=== PATIENT | female | born 1935 | race African-American/Black ===

== ENCOUNTER 2021-02-05 17:13 | Inpatient (IN) | payer MEDICARE, MEDICAID ==
[~2021-02-05] VITALS: Ht 160 cm; Wt 73.9 kg
[~2021-02-05 17:13] MED LIST: AMLO-354 PO; ATOR40TA70 PO; CLOP75TA33 PO; DESL5TAB PO; DIGO125T80 PO; DOCU-150 PO; FERR-63 PO; INSU3INS8 SQ; METF-414 PO; POTA10CA42 PO
[2021-02-05 19:55] LABS: BASOPHILS % 0.2 % (0.0-2.0); EOSINOPHILS % 1.3 % (0.0-5.0); HEMATOCRIT. 33.2 % (36.0-48.0); HEMOGLOBIN. 11.3 g/dL (12.0-16.0); LYMPHOCYTES % 15.5 % (20.0-50.0); MEAN CORPUSCULAR HEMOGLOBIN 28.3 pg (28.0-32.0); MEAN CORPUSCULAR VOLUME 83.6 fL (81.0-99.0); MEAN PLATELET VOLUME 9.1 fl (7.4-10.4); MONOCYTES % 7.5 % (2.0-8.0); NEUTROPHILS % 75.5 % (40.0-76.0); PLATELET 309 x1000/uL (130-400); RED BLOOD CELL COUNT 3.98 mill/uL (4.2-5.4); RED CELL DISTRIBUTION WIDTH 15.1 % (11.6-14.6)
[2021-02-05] MEDS ORDERED: CLONIDINE 0.1MG TABLET PO ONE (20:00)
[2021-02-05] MEDS ORDERED: DEXTROSE 50% WATER 50ML SYRINGE IV PRN ×2 (21:30)
[2021-02-05] MEDS ORDERED: LORAZEPAM 2MG/ML CPJ IV PRN (21:30)
[2021-02-05] MEDS ORDERED: ONDANSETRON HCL 4MG/2ML INJ IV PRN (21:30)
[2021-02-05] MEDS ORDERED: SODIUM CHL 0.45% + KCL 20MEQ/L 1,000 ML IV SCH (22:00)
[2021-02-06] VITALS (8 sets, daily range): BP systolic 118–169; BP diastolic 50–70
[2021-02-06] MEDS: LOSARTAN POTASSIUM 50 MG TABLET PO SCH ×3 (00:14→21:09)
[2021-02-06] MEDS: DEXAMETHASONE 4MG/ML 1ML VIAL IV SCH ×5 (00:14→23:05)
[2021-02-06] MEDS: ZOLPIDEM TARTRATE 5MG TABLET PO PRN ×2 (02:24→21:08)
[2021-02-06] MEDS: ACETAMINOPHEN 325MG TABLET PO PRN (02:24)
[2021-02-06] MEDS: BLOOD SUGAR DIAGNOSTIC STRIP TEST SCH ×4 (06:17→21:13)
[2021-02-06 07:06] LABS: HEMATOCRIT. 32.9 % (36.0-48.0); MEAN CORPUSCULAR HEMOGLOBIN 27.7 pg (28.0-32.0); MEAN CORPUSCULAR VOLUME 83.1 fL (81.0-99.0); MEAN PLATELET VOLUME 9.4 fl (7.4-10.4); PLATELET 304 x1000/uL (130-400); RED BLOOD CELL COUNT 3.96 mill/uL (4.2-5.4); RED CELL DISTRIBUTION WIDTH 15.4 % (11.6-14.6)
[2021-02-06] MEDS ORDERED: OMEPRAZOLE 20MG CAPSULE EXTENDED RELEASE PO SCH (07:10)
[2021-02-06 07:47] LABS: CHLORIDE 107 mEq/L (98-107)
[2021-02-06] MEDS ORDERED: CLOPIDOGREL 75MG TABLET PO SCH (09:00)
[2021-02-06] MEDS: LEVETIRACETAM 500MG TABLET PO SCH ×2 (09:00→21:08)
[2021-02-06] MEDS: DOCUSATE SODIUM 100MG CAPSULE PO SCH ×2 (09:00→17:35)
[2021-02-06] MEDS: AMLODIPINE 5MG TABLET PO SCH ×2 (09:00→21:08)
[2021-02-06] MEDS: INSULIN LISPRO 100 UNITS/ML SUBCUT SCH ×4 (09:01→21:16)
[2021-02-06] MEDS ORDERED: EZ-HD SUSPENSION(BARIUM SULFATE 340GM) PO ONE (09:34)
[2021-02-06] MEDS ORDERED: INSULIN GLARGINE UD 100 UNITS/ML SYR SUBCUT SCH (10:00)
[2021-02-06 12:57] LABS: PLATELET ESTIMATE NORMAL
[2021-02-06] MEDS: SODIUM CHL 0.45% + KCL 20MEQ/L 1,000 ML IV SCH (13:37)
[2021-02-06] MEDS ORDERED: GADOTERATE MEGLUMINE 5 MMOL/10 ML VIAL IV ONE (14:38)
[2021-02-06] MEDS: DIGOXIN 125MCG TABLET PO SCH (17:35)
[2021-02-06] MEDS: PANTOPRAZOLE SODIUM 40 MG/VIAL IV SCH (21:07)
[2021-02-06] MEDS: ATORVASTATIN CALCIUM 20MG TABLET PO SCH (21:07)
[2021-02-07] VITALS (43 sets, daily range): BP systolic 77–164; BP diastolic 40–82
[2021-02-07] MEDS: DEXAMETHASONE 4MG/ML 1ML VIAL IV SCH ×3 (06:00→17:27)
[2021-02-07] MEDS: BLOOD SUGAR DIAGNOSTIC STRIP TEST SCH ×3 (06:04→17:20)
[2021-02-07] MEDS: INSULIN LISPRO 100 UNITS/ML SUBCUT SCH ×3 (06:04→17:28)
[2021-02-07 06:21] LABS: BASOPHILS % 0.1 % (0.0-2.0); HEMATOCRIT. 35.8 % (36.0-48.0); HEMOGLOBIN. 11.4 g/dL (12.0-16.0); LYMPHOCYTES % 8.7 % (20.0-50.0); MEAN CORPUSCULAR HEMOGLOBIN 26.8 pg (28.0-32.0); MEAN CORPUSCULAR VOLUME 83.7 fL (81.0-99.0); MEAN PLATELET VOLUME 9.3 fl (7.4-10.4); MONOCYTES % 3.2 % (2.0-8.0); PLATELET 318 x1000/uL (130-400); RED BLOOD CELL COUNT 4.28 mill/uL (4.2-5.4)
[2021-02-07 06:23] LABS: PROTHROMBIN TIME 10.8 sec (9.6-11.0)
[2021-02-07 06:44] LABS: CHLORIDE 111 mEq/L (98-107)
[2021-02-07] MEDS: SODIUM CHL 0.45% + KCL 20MEQ/L 1,000 ML IV SCH ×2 (08:53→15:51)
[2021-02-07] MEDS: PANTOPRAZOLE SODIUM 40 MG/VIAL IV SCH ×2 (08:54→21:13)
[2021-02-07] MEDS: DOCUSATE SODIUM 100MG CAPSULE PO SCH ×2 (08:54→17:27)
[2021-02-07] MEDS: AMLODIPINE 5MG TABLET PO SCH ×2 (08:54→21:13)
[2021-02-07] MEDS: LEVETIRACETAM 500MG TABLET PO SCH ×2 (08:54→21:13)
[2021-02-07] MEDS: LOSARTAN POTASSIUM 50 MG TABLET PO SCH ×2 (08:55→21:13)
[2021-02-07] MEDS ORDERED: LACTULOSE 20G/30ML UDC PO NR (09:15)
[2021-02-07] MEDS ORDERED: BARIUM SULFATE 450ML ORAL SUSP PO SCH (09:30)
[2021-02-07] MEDS: INSULIN GLARGINE UD 100 UNITS/ML SYR SUBCUT SCH (10:00)
[2021-02-07] MEDS ORDERED: NICARDIPINE 100 MG in SODIUM CHLORIDE 0.9% 60 ML IV PRN (10:30)
[2021-02-07] MEDS ORDERED: NITROPRUSSIDE 100 MG in DEXT 5% WATER 250 ML IV PRN (11:45)
[2021-02-07] MEDS ORDERED: DEXT 5%/0.45% NACL 1000ML 1,000 ML IV SCH (13:15)
[2021-02-07] MEDS ORDERED: DIATR MEGLU/DIATRIZOATE SOLN 30ML ONE (14:42)
[2021-02-07] MEDS: CLONIDINE 0.1MG TABLET PO PRN (15:32)
[2021-02-07] MEDS: DIGOXIN 125MCG TABLET PO SCH (17:28)
[2021-02-07] MEDS: ATORVASTATIN CALCIUM 20MG TABLET PO SCH (21:13)
[2021-02-07] MEDS ORDERED: IOHEXOL-300 100 ML BOTTLE ONE (23:33)
[2021-02-08] VITALS (83 sets, daily range): BP systolic 69–180; BP diastolic 36–88
[2021-02-08] MEDS: BLOOD SUGAR DIAGNOSTIC STRIP TEST SCH ×5 (00:14→23:06)
[2021-02-08] MEDS: DEXAMETHASONE 4MG/ML 1ML VIAL IV SCH ×5 (00:14→23:10)
[2021-02-08] MEDS: INSULIN LISPRO 100 UNITS/ML SUBCUT SCH ×5 (00:15→23:11)
[2021-02-08] MEDS: SODIUM CHL 0.45% + KCL 20MEQ/L 1,000 ML IV SCH (05:31)
[2021-02-08 05:45] LABS: HEMATOCRIT. 33.1 % (36.0-48.0); HEMOGLOBIN. 10.9 g/dL (12.0-16.0); MEAN CORPUSCULAR HEMOGLOBIN 27.6 pg (28.0-32.0); MEAN CORPUSCULAR VOLUME 83.8 fL (81.0-99.0); PLATELET 307 x1000/uL (130-400); RED BLOOD CELL COUNT 3.94 mill/uL (4.2-5.4); RED CELL DISTRIBUTION WIDTH 15.1 % (11.6-14.6)
[2021-02-08 05:46] LABS: CHLORIDE 111 mEq/L (98-107)
[2021-02-08] MEDS ORDERED: LIDOCAINE HCL/EPINEPHRINE 1%-EPI 1:100,000 20 ML VIAL ONE ×3 (05:57→06:45)
[2021-02-08] MEDS ORDERED: GENTAMICIN SULF 40MG/ML 2ML VIAL ONE (05:57)
[2021-02-08] MEDS ORDERED: THROMBIN (BOVINE) 5000 UNITS/VIAL TOP ONE (05:57)
[2021-02-08] MEDS ORDERED: MANNITOL 20% 0 ML IV ONE (06:08)
[2021-02-08] MEDS ORDERED: BACITRACIN 15GM TUBE TOP ONE ×2 (06:27→08:20)
[2021-02-08] MEDS ORDERED: BACITRACIN 50,000 UNITS/VIAL ONE (06:37)
[2021-02-08] MEDS ORDERED: LIDOCAINE HCL/EPINEPHRINE 1%-EPI 1:100,000 10 ML VIAL ONE (06:45)
[2021-02-08] MEDS ORDERED: FENTANYL CITRATE/PF 50MCG/ML 2ML VIAL ONE (07:11)
[2021-02-08] MEDS ORDERED: NEOSTIGMINE METHYLSULFATE 1MG/ML 10 ML VIAL ONE (07:11)
[2021-02-08] MEDS ORDERED: PROPOFOL 200MG/20ML VIAL IV ONE ×2 (07:11→08:18)
[2021-02-08] MEDS ORDERED: MIDAZOLAM HCL 2 MG/2 ML VIAL ONE (07:11)
[2021-02-08] MEDS ORDERED: ROCURONIUM BROMIDE 10MG/ML VIAL 5ML IV ONE (07:11)
[2021-02-08] MEDS ORDERED: GLYCOPYRROLATE 0.2 MG/ML 2ML VIAL ONE (07:12)
[2021-02-08] MEDS ORDERED: NICARDIPINE 100 MG in SODIUM CHLORIDE 0.9% 60 ML IV PRN (07:15)
[2021-02-08] MEDS ORDERED: MORPHINE SULFATE 4 MG/ML CPJ (NOT FOR IM USE) IV PRN (07:15)
[2021-02-08] MEDS ORDERED: NALOXONE HCL 0.4MG/ML VIAL IV PRN (07:15)
[2021-02-08] MEDS ORDERED: DEXAMETHASONE 4MG/ML 1ML VIAL ONE (07:17)
[2021-02-08] MEDS ORDERED: CEFAZOLIN SODIUM 1000MG/VIAL ONE (07:34)
[2021-02-08] MEDS ORDERED: LIDOCAINE HCL 1% 20ML VIAL (Pyxis) INJ ONE ×2 (07:34→14:41)
[2021-02-08] MEDS ORDERED: ONDANSETRON HCL 4MG/2ML INJ ONE (07:34)
[2021-02-08] MEDS ORDERED: SODIUM CHLORIDE 0.9% 10ML VIAL ONE ×2 (07:34→09:26)
[2021-02-08] MEDS ORDERED: HYDROMORPHONE HCL/PF 2MG/ML (OR) ONE (07:40)
[2021-02-08] MEDS: LOSARTAN POTASSIUM 50 MG TABLET PO SCH ×2 (09:00→20:21)
[2021-02-08] MEDS: PANTOPRAZOLE SODIUM 40 MG/VIAL IV SCH ×2 (09:00→21:13)
[2021-02-08] MEDS: DOCUSATE SODIUM 100MG CAPSULE PO SCH ×2 (09:00→17:00)
[2021-02-08] MEDS: AMLODIPINE 5MG TABLET PO SCH ×2 (09:00→20:21)
[2021-02-08] MEDS: LEVETIRACETAM 500MG TABLET PO SCH ×2 (09:00→20:21)
[2021-02-08] MEDS ORDERED: METOPROLOL TARTRATE 5MG/5ML VIAL IV ONE (09:26)
[2021-02-08] MEDS ORDERED: LABETALOL HCL 5MG/ML VIAL 20ML IV ONE (09:26)
[2021-02-08] MEDS ORDERED: VECURONIUM BROMIDE 10 MG/VIAL IV ONE (09:26)
[2021-02-08] MEDS: INSULIN GLARGINE UD 100 UNITS/ML SYR SUBCUT SCH (10:00)
[2021-02-08] MEDS ORDERED: PROPOFOL 10MG/ML 100ML 100 ML IV PRN (10:30)
[2021-02-08] MEDS: NITROPRUSSIDE 100 MG in DEXT 5% WATER 250 ML IV PRN (10:33)
[2021-02-08 11:23] LABS: BG BASE EXCESS -7.3 mmol/L (-2.0-2.0); BG CARBOXYHEMOGLOBIN 0.3 % (0.5-1.5); BG DEOXYHEMOGLOBIN 0.7 % (0.0-5.0); BG FRACTION INSPIRED OXYGEN 100; BG HCO3 ACT 17.5 mmol/L (22.0-26.0); BG METHEMOGLOBIN 0.6 % (0.0-1.5); BG OXYGEN SATURATION 99.3 % (92.0-98.5); BG OXYHEMOGLOBIN 98.4 % (94.0-97.0); BG PCO2 33.1 mmHg (35.0-45.0); BG PH 7.341 (7.350-7.450); BG PO2 448.8 mmHg (75.0-100.0); BG SAMPLE SITE ALINE; BG TOTAL HEMOGLOBIN 12.5 g/dL (12.0-18.0); BG VENT MODE VENT - AC
[2021-02-08 12:07] LABS: PLATELET ESTIMATE NORMAL
[2021-02-08] MEDS: PIPERACILLIN/TAZOBACTAM 3.375 G in DEXTROSE 5% WATER 50 ML IV SCH ×3 (13:53→23:10)
[2021-02-08] MEDS ORDERED: CEFAZOLIN SODIUM 1000MG/VIAL IV SCH (14:00)
[2021-02-08] MEDS: CEFAZOLIN 1000MG PREMIX 50 ML IV SCH ×2 (15:38→21:13)
[2021-02-08] MEDS: DIGOXIN 125MCG TABLET PO SCH (18:00)
[2021-02-08] MEDS: ATORVASTATIN CALCIUM 20MG TABLET PO SCH (20:21)
[2021-02-09] VITALS (94 sets, daily range): BP systolic 75–186; BP diastolic 30–108
[2021-02-09] MEDS: BLOOD SUGAR DIAGNOSTIC STRIP TEST SCH ×3 (05:37→17:48)
[2021-02-09] MEDS: CEFAZOLIN 1000MG PREMIX 50 ML IV SCH ×2 (05:41→14:42)
[2021-02-09] MEDS: SODIUM CHL 0.45% + KCL 20MEQ/L 1,000 ML IV SCH ×2 (05:41→14:44)
[2021-02-09] MEDS: DEXAMETHASONE 4MG/ML 1ML VIAL IV SCH (05:41)
[2021-02-09] MEDS: INSULIN LISPRO 100 UNITS/ML SUBCUT SCH ×3 (05:42→17:50)
[2021-02-09 06:02] LABS: HEMATOCRIT. 30.1 % (36.0-48.0); HEMOGLOBIN. 9.9 g/dL (12.0-16.0); MEAN CORPUSCULAR HEMOGLOBIN 27.3 pg (28.0-32.0); MEAN CORPUSCULAR VOLUME 82.6 fL (81.0-99.0); MEAN PLATELET VOLUME 9.3 fl (7.4-10.4); PLATELET 305 x1000/uL (130-400); RED BLOOD CELL COUNT 3.64 mill/uL (4.2-5.4); RED CELL DISTRIBUTION WIDTH 15.3 % (11.6-14.6)
[2021-02-09] MEDS: PIPERACILLIN/TAZOBACTAM 3.375 G in DEXTROSE 5% WATER 50 ML IV SCH ×3 (06:16→17:47)
[2021-02-09 07:50] LABS: BG CARBOXYHEMOGLOBIN 0.3 % (0.5-1.5); BG DEOXYHEMOGLOBIN 1.3 % (0.0-5.0); BG HCO3 ACT 17.7 mmol/L (22.0-26.0); BG METHEMOGLOBIN 0.3 % (0.0-1.5); BG OXYGEN SATURATION 98.7 % (92.0-98.5); BG OXYHEMOGLOBIN 98.1 % (94.0-97.0); BG PCO2 28.8 mmHg (35.0-45.0); BG PH 7.406 (7.350-7.450); BG PO2 166.7 mmHg (75.0-100.0); BG SAMPLE SITE ALINE; BG VENT MODE VENT - AC
[2021-02-09] MEDS: NITROPRUSSIDE 100 MG in DEXT 5% WATER 250 ML IV PRN (07:57)
[2021-02-09] MEDS: MORPHINE SULFATE 2 MG/ML CPJ (NOT FOR IM USE) IV PRN ×3 (08:38→17:46)
[2021-02-09] MEDS: PANTOPRAZOLE SODIUM 40 MG/VIAL IV SCH ×2 (10:01→21:38)
[2021-02-09] MEDS: INSULIN GLARGINE UD 100 UNITS/ML SYR SUBCUT SCH (10:14)
[2021-02-09] MEDS ORDERED: LEVETIRACETAM 500 MG in SODIUM CHLORIDE 0.9% 100 ML IV SCH (11:15)
[2021-02-09 12:36] LABS: PLATELET ESTIMATE NORMAL
[2021-02-09] MEDS: LEVETIRACETAM 500MG PREMIX 100 ML IV SCH ×2 (13:02→21:38)
[2021-02-09] MEDS: DOCUSATE SODIUM 100MG CAPSULE PO SCH ×2 (13:27→17:47)
[2021-02-09] MEDS: LOSARTAN POTASSIUM 50 MG TABLET PO SCH ×2 (13:27→21:38)
[2021-02-09] MEDS: AMLODIPINE 5MG TABLET PO SCH ×2 (13:27→21:38)
[2021-02-09] MEDS: NICARDIPINE 100 MG in SODIUM CHLORIDE 0.9% 100 ML IV PRN ×2 (14:19→21:08)
[2021-02-09] MEDS: CLONIDINE 0.1MG TABLET PO PRN (14:41)
[2021-02-09] MEDS: DIGOXIN 125MCG TABLET PO SCH (17:47)
[2021-02-09] MEDS: ATORVASTATIN CALCIUM 20MG TABLET PO SCH (21:38)
[2021-02-10] VITALS (93 sets, daily range): BP systolic 95–146; BP diastolic 42–76
[2021-02-10] MEDS: INSULIN LISPRO 100 UNITS/ML SUBCUT SCH ×4 (00:03→18:16)
[2021-02-10] MEDS: PIPERACILLIN/TAZOBACTAM 3.375 G in DEXTROSE 5% WATER 50 ML IV SCH ×4 (00:03→18:12)
[2021-02-10] MEDS ORDERED: CEFAZOLIN 1000MG PREMIX 50 ML IV SCH (02:00)
[2021-02-10] MEDS: NICARDIPINE 100 MG in SODIUM CHLORIDE 0.9% 100 ML IV PRN ×3 (05:04→21:57)
[2021-02-10] MEDS: BLOOD SUGAR DIAGNOSTIC STRIP TEST SCH ×4 (06:21→17:32)
[2021-02-10 08:21] LABS: BG BASE EXCESS -7.3 mmol/L (-2.0-2.0); BG DEOXYHEMOGLOBIN 5.9 % (0.0-5.0); BG FRACTION INSPIRED OXYGEN 35; BG HCO3 ACT 17.5 mmol/L (22.0-26.0); BG METHEMOGLOBIN 0.4 % (0.0-1.5); BG OXYGEN SATURATION 94.1 % (92.0-98.5); BG OXYHEMOGLOBIN 93.7 % (94.0-97.0); BG PCO2 32.5 mmHg (35.0-45.0); BG PH 7.348 (7.350-7.450); BG PO2 75.2 mmHg (75.0-100.0); BG SAMPLE SITE RIGHT RADIAL; BG TOTAL HEMOGLOBIN 10.8 g/dL (12.0-18.0); BG VENT MODE VENT - SIMV
[2021-02-10] MEDS: PANTOPRAZOLE SODIUM 40 MG/VIAL IV SCH ×2 (09:38→21:29)
[2021-02-10] MEDS: LOSARTAN POTASSIUM 50 MG TABLET PO SCH ×2 (09:39→21:29)
[2021-02-10] MEDS: LEVETIRACETAM 500MG PREMIX 100 ML IV SCH ×2 (09:39→21:30)
[2021-02-10] MEDS: HYDRALAZINE HCL 25MG TABLET PO SCH ×3 (09:39→21:29)
[2021-02-10] MEDS: AMLODIPINE 5MG TABLET PO SCH ×2 (09:39→21:29)
[2021-02-10] MEDS: DOCUSATE SODIUM 100MG CAPSULE PO SCH ×2 (09:39→16:58)
[2021-02-10] MEDS: INSULIN GLARGINE UD 100 UNITS/ML SYR SUBCUT SCH (09:40)
[2021-02-10] MEDS: SODIUM CHL 0.45% + KCL 20MEQ/L 1,000 ML IV SCH (11:33)
[2021-02-10 15:32] LABS: HEMATOCRIT. 31.9 % (36.0-48.0); HEMOGLOBIN. 10.3 g/dL (12.0-16.0); MEAN CORPUSCULAR HEMOGLOBIN 27.6 pg (28.0-32.0); MEAN CORPUSCULAR VOLUME 85.3 fL (81.0-99.0); MEAN PLATELET VOLUME 9.1 fl (7.4-10.4); PLATELET 242 x1000/uL (130-400); RED BLOOD CELL COUNT 3.74 mill/uL (4.2-5.4); RED CELL DISTRIBUTION WIDTH 15.5 % (11.6-14.6)
[2021-02-10 16:37] LABS: PLATELET ESTIMATE NORMAL
[2021-02-10] MEDS: DIGOXIN 125MCG TABLET PO SCH (18:09)
[2021-02-10] MEDS: ATORVASTATIN CALCIUM 20MG TABLET PO SCH (21:29)
[2021-02-11] VITALS (94 sets, daily range): BP systolic 97–156; BP diastolic 39–85
[2021-02-11] MEDS: PIPERACILLIN/TAZOBACTAM 3.375 G in DEXTROSE 5% WATER 50 ML IV SCH ×2 (00:09→06:00)
[2021-02-11] MEDS: INSULIN LISPRO 100 UNITS/ML SUBCUT SCH ×5 (00:19→23:25)
[2021-02-11] MEDS: BLOOD SUGAR DIAGNOSTIC STRIP TEST SCH ×5 (06:00→23:11)
[2021-02-11] MEDS: HYDRALAZINE HCL 25MG TABLET PO SCH ×3 (06:00→21:18)
[2021-02-11 08:06] LABS: BG BASE EXCESS -6.7 mmol/L (-2.0-2.0); BG CARBOXYHEMOGLOBIN 0.3 % (0.5-1.5); BG DEOXYHEMOGLOBIN 1.4 % (0.0-5.0); BG HCO3 ACT 17.6 mmol/L (22.0-26.0); BG METHEMOGLOBIN 0.6 % (0.0-1.5); BG OXYGEN SATURATION 98.6 % (92.0-98.5); BG OXYHEMOGLOBIN 97.7 % (94.0-97.0); BG PCO2 30.8 mmHg (35.0-45.0); BG PH 7.375 (7.350-7.450); BG PO2 140.2 mmHg (75.0-100.0); BG SAMPLE SITE RIGHT RADIAL; BG TOTAL HEMOGLOBIN 10.1 g/dL (12.0-18.0); BG VENT MODE VENT - SIMV
[2021-02-11] MEDS: DOCUSATE SODIUM 100MG CAPSULE PO SCH ×2 (09:00→17:00)
[2021-02-11] MEDS: LEVETIRACETAM 500MG PREMIX 100 ML IV SCH ×2 (09:13→21:18)
[2021-02-11] MEDS: LOSARTAN POTASSIUM 50 MG TABLET PO SCH ×2 (09:13→20:23)
[2021-02-11] MEDS: SODIUM CHL 0.45% + KCL 20MEQ/L 1,000 ML IV SCH (09:13)
[2021-02-11] MEDS: PANTOPRAZOLE SODIUM 40 MG/VIAL IV SCH ×2 (09:13→20:23)
[2021-02-11] MEDS: AMLODIPINE 5MG TABLET PO SCH ×2 (09:14→20:23)
[2021-02-11] MEDS: ACETAMINOPHEN 325MG TABLET PO PRN (09:14)
[2021-02-11] MEDS: INSULIN GLARGINE UD 100 UNITS/ML SYR SUBCUT SCH (09:28)
[2021-02-11 09:36] LABS: HEMOGLOBIN. 9.9 g/dL (12.0-16.0); MEAN CORPUSCULAR HEMOGLOBIN 27.7 pg (28.0-32.0); MEAN CORPUSCULAR VOLUME 84.2 fL (81.0-99.0); MEAN PLATELET VOLUME 9.1 fl (7.4-10.4); PLATELET 230 x1000/uL (130-400); RED BLOOD CELL COUNT 3.57 mill/uL (4.2-5.4); RED CELL DISTRIBUTION WIDTH 15.4 % (11.6-14.6)
[2021-02-11 10:46] LABS: PLATELET ESTIMATE NORMAL
[2021-02-11] MEDS: PIPERACILLIN/TAZOBACTAM 2.25G in DEXTROSE 5% WATER 50ML IV SCH ×3 (13:19→23:18)
[2021-02-11] MEDS: DIGOXIN 125MCG TABLET PO SCH (17:33)
[2021-02-11] MEDS: ATORVASTATIN CALCIUM 20MG TABLET PO SCH (20:23)
[2021-02-11] MEDS: NICARDIPINE 100 MG in SODIUM CHLORIDE 0.9% 100 ML IV PRN (21:41)
[2021-02-12] VITALS (99 sets, daily range): BP systolic 101–160; BP diastolic 33–82
[2021-02-12] MEDS: BLOOD SUGAR DIAGNOSTIC STRIP TEST SCH ×3 (05:38→18:28)
[2021-02-12] MEDS: HYDRALAZINE HCL 25MG TABLET PO SCH ×3 (05:41→21:09)
[2021-02-12] MEDS: PIPERACILLIN/TAZOBACTAM 2.25G in DEXTROSE 5% WATER 50ML IV SCH ×3 (05:41→18:28)
[2021-02-12] MEDS: INSULIN LISPRO 100 UNITS/ML SUBCUT SCH ×3 (05:43→18:28)
[2021-02-12] MEDS: LEVETIRACETAM 500MG PREMIX 100 ML IV SCH ×2 (08:31→20:17)
[2021-02-12] MEDS: PANTOPRAZOLE SODIUM 40 MG/VIAL IV SCH ×2 (08:31→20:17)
[2021-02-12] MEDS: DOCUSATE SODIUM 100MG CAPSULE PO SCH (08:32)
[2021-02-12] MEDS: LOSARTAN POTASSIUM 50 MG TABLET PO SCH ×2 (08:32→20:18)
[2021-02-12] MEDS: AMLODIPINE 5MG TABLET PO SCH ×2 (08:32→20:18)
[2021-02-12 08:34] LABS: BG BASE EXCESS -6.4 mmol/L (-2.0-2.0); BG CARBOXYHEMOGLOBIN 0.3 % (0.5-1.5); BG DEOXYHEMOGLOBIN 1.3 % (0.0-5.0); BG FRACTION INSPIRED OXYGEN 35; BG HCO3 ACT 17.7 mmol/L (22.0-26.0); BG METHEMOGLOBIN 0.5 % (0.0-1.5); BG OXYGEN SATURATION 98.7 % (92.0-98.5); BG OXYHEMOGLOBIN 97.9 % (94.0-97.0); BG PCO2 30.4 mmHg (35.0-45.0); BG PH 7.384 (7.350-7.450); BG PO2 131.6 mmHg (75.0-100.0); BG SAMPLE SITE LEFT RADIAL; BG TOTAL HEMOGLOBIN 9.4 g/dL (12.0-18.0); BG TOTAL RESPIRATORY RATE 18 b/min; BG VENT MODE VENT - SIMV
[2021-02-12 10:26] LABS: HEMATOCRIT. 26.3 % (36.0-48.0); HEMOGLOBIN. 8.5 g/dL (12.0-16.0); MEAN CORPUSCULAR HEMOGLOBIN 27.3 pg (28.0-32.0); MEAN CORPUSCULAR VOLUME 84.3 fL (81.0-99.0); PLATELET 210 x1000/uL (130-400); RED BLOOD CELL COUNT 3.12 mill/uL (4.2-5.4); RED CELL DISTRIBUTION WIDTH 15.4 % (11.6-14.6)
[2021-02-12] MEDS: CLONIDINE 0.1MG TABLET PO PRN (10:51)
[2021-02-12] MEDS: INSULIN GLARGINE UD 100 UNITS/ML SYR SUBCUT SCH (10:52)
[2021-02-12] MEDS: SODIUM CHL 0.45% + KCL 20MEQ/L 1,000 ML IV SCH (11:27)
[2021-02-12 11:52] LABS: PLATELET ESTIMATE NORMAL
[2021-02-12 15:24] LABS: CLARITY URINE CLOUDY (CLEAR); COLOR URINE YELLOW (YELLOW); KETONES URINE NEGATIVE (NEGATIVE); LEUKOCYTE ESTERASE URINE NEGATIVE (NEGATIVE); NITRITE URINE NEGATIVE (NEGATIVE); OCCULT BLOOD URINE NEGATIVE (NEGATIVE); PH URINE 5.5 (4.5-8.0); PROTEIN URINE 1+ (NEGATIVE); SPECIFIC GRAVITY URINE 1.016 (1.005-1.030); UROBILINOGEN URINE 0.2 E.U./dL (0.2-1.0)
[2021-02-12] MEDS: DIGOXIN 125MCG TABLET PO SCH (18:28)
[2021-02-12] MEDS: ATORVASTATIN CALCIUM 20MG TABLET PO SCH (20:18)
[2021-02-13] VITALS (93 sets, daily range): BP systolic -1–158; BP diastolic -2–103
[2021-02-13] MEDS: INSULIN LISPRO 100 UNITS/ML SUBCUT SCH ×5 (00:09→23:57)
[2021-02-13] MEDS: PIPERACILLIN/TAZOBACTAM 2.25G in DEXTROSE 5% WATER 50ML IV SCH ×3 (00:09→12:06)
[2021-02-13] MEDS: BLOOD SUGAR DIAGNOSTIC STRIP TEST SCH ×5 (00:17→23:26)
[2021-02-13] MEDS: LOPERAMIDE 2MG/15ML UDC PO PRN ×2 (03:57→20:24)
[2021-02-13] MEDS: HYDRALAZINE HCL 25MG TABLET PO SCH ×3 (05:10→23:07)
[2021-02-13] MEDS: NICARDIPINE 100 MG in SODIUM CHLORIDE 0.9% 100 ML IV PRN ×2 (05:11→20:27)
[2021-02-13 05:50] LABS: HEMATOCRIT. 25.6 % (36.0-48.0); HEMOGLOBIN. 8.6 g/dL (12.0-16.0); MEAN CORPUSCULAR HEMOGLOBIN 28.2 pg (28.0-32.0); MEAN CORPUSCULAR VOLUME 83.8 fL (81.0-99.0); MEAN PLATELET VOLUME 9.5 fl (7.4-10.4); PLATELET 222 x1000/uL (130-400); RED BLOOD CELL COUNT 3.05 mill/uL (4.2-5.4); RED CELL DISTRIBUTION WIDTH 15.3 % (11.6-14.6)
[2021-02-13] MEDS: LEVETIRACETAM 500MG PREMIX 100 ML IV SCH ×2 (08:19→20:25)
[2021-02-13] MEDS: LOSARTAN POTASSIUM 50 MG TABLET PO SCH ×2 (08:20→20:24)
[2021-02-13] MEDS: AMLODIPINE 5MG TABLET PO SCH ×2 (08:20→20:24)
[2021-02-13] MEDS: PANTOPRAZOLE SODIUM 40 MG/VIAL IV SCH ×2 (08:20→20:24)
[2021-02-13 08:26] LABS: BG BASE EXCESS -3.9 mmol/L (-2.0-2.0); BG CARBOXYHEMOGLOBIN 0.2 % (0.5-1.5); BG DEOXYHEMOGLOBIN 1.9 % (0.0-5.0); BG FRACTION INSPIRED OXYGEN 35; BG HCO3 ACT 20.4 mmol/L (22.0-26.0); BG METHEMOGLOBIN 0.2 % (0.0-1.5); BG OXYGEN SATURATION 98.1 % (92.0-98.5); BG OXYHEMOGLOBIN 97.7 % (94.0-97.0); BG PCO2 33.7 mmHg (35.0-45.0); BG PH 7.399 (7.350-7.450); BG PO2 111.8 mmHg (75.0-100.0); BG SAMPLE SITE RIGHT RADIAL; BG TOTAL HEMOGLOBIN 8.9 g/dL (12.0-18.0); BG VENT MODE VENT - SIMV
[2021-02-13] MEDS: INSULIN GLARGINE UD 100 UNITS/ML SYR SUBCUT SCH (09:32)
[2021-02-13 12:18] LABS: BG BASE EXCESS -4.1 mmol/L (-2.0-2.0); BG CARBOXYHEMOGLOBIN 0.2 % (0.5-1.5); BG DEOXYHEMOGLOBIN 3.1 % (0.0-5.0); BG FRACTION INSPIRED OXYGEN 35; BG HCO3 ACT 20.5 mmol/L (22.0-26.0); BG METHEMOGLOBIN 1.1 % (0.0-1.5); BG OXYGEN SATURATION 96.9 % (92.0-98.5); BG OXYHEMOGLOBIN 95.6 % (94.0-97.0); BG PCO2 35.7 mmHg (35.0-45.0); BG PH 7.378 (7.350-7.450); BG PO2 100.3 mmHg (75.0-100.0); BG SAMPLE SITE RIGHT RADIAL; BG TOTAL HEMOGLOBIN 9.2 g/dL (12.0-18.0); BG VENT MODE VENT - CPAP
[2021-02-13 16:15] LABS: PLATELET ESTIMATE NORMAL
[2021-02-13] MEDS ORDERED: IPRATROPIUM BROMIDE (0.02%) 0.5MG/2.5ML NEB ONE (17:28)
[2021-02-13] MEDS ORDERED: RACEPINEPHRINE 2.25% 0.5ML NEB VIAL ONE (17:28)
[2021-02-13] MEDS ORDERED: RACEPINEPHRINE 2.25% 0.5ML NEB VIAL HHN NR (17:30)
[2021-02-13] MEDS: DIGOXIN 125MCG TABLET PO SCH (18:05)
[2021-02-13] MEDS: RACEPINEPHRINE 2.25% 0.5ML NEB VIAL HHN PRN (20:17)
[2021-02-13] MEDS: ATORVASTATIN CALCIUM 40MG TABLET NG SCH (20:24)
[2021-02-13] MEDS: VANCOMYCIN HCL 1000 MG/20 ML ORAL PO SCH (20:25)
[2021-02-13] MEDS: ACETAMINOPHEN 325MG TABLET PO PRN (23:07)
[2021-02-14] VITALS (83 sets, daily range): BP systolic -4–155; BP diastolic -6–117
[2021-02-14] LABS: BG BASE EXCESS -2.3 mmol/L (-2.0-2.0); BG CARBOXYHEMOGLOBIN 0.3 % (0.5-1.5); BG DEOXYHEMOGLOBIN 2.6 % (0.0-5.0); BG FRACTION INSPIRED OXYGEN 40; BG HCO3 ACT 23.1 mmol/L (22.0-26.0); BG METHEMOGLOBIN 0.3 % (0.0-1.5); BG OXYGEN SATURATION 97.4 % (92.0-98.5); BG OXYHEMOGLOBIN 96.8 % (94.0-97.0); BG PH 7.358 (7.350-7.450); BG PO2 104.4 mmHg (75.0-100.0); BG SAMPLE SITE RIGHT RADIAL; BG TOTAL HEMOGLOBIN 10.9 g/dL (12.0-18.0); BG VENT MODE COOL AEROSOL
[2021-02-14] MEDS: ACETYLCYSTEINE 100MG/ML 10% VIAL 4ML INH SCH ×3 (00:15→15:54)
[2021-02-14] MEDS: IPRATROPIUM/ALBUTEROL 0.5-3(2.5)MG/3ML NEB HHN PRN ×2 (00:21→08:07)
[2021-02-14] MEDS: RACEPINEPHRINE 2.25% 0.5ML NEB VIAL HHN PRN ×3 (00:41→15:54)
[2021-02-14] MEDS: ACETAMINOPHEN 325MG TABLET PO PRN ×2 (04:23→17:47)
[2021-02-14] MEDS: BLOOD SUGAR DIAGNOSTIC STRIP TEST SCH ×3 (05:30→17:40)
[2021-02-14] MEDS: HYDRALAZINE HCL 25MG TABLET PO SCH ×3 (05:49→22:31)
[2021-02-14] MEDS: INSULIN LISPRO 100 UNITS/ML SUBCUT SCH ×3 (05:50→17:46)
[2021-02-14 06:08] LABS: HEMATOCRIT. 24.9 % (36.0-48.0); HEMOGLOBIN. 8.1 g/dL (12.0-16.0); MEAN CORPUSCULAR HEMOGLOBIN 27.5 pg (28.0-32.0); MEAN CORPUSCULAR VOLUME 84.4 fL (81.0-99.0); MEAN PLATELET VOLUME 9.5 fl (7.4-10.4); PLATELET 232 x1000/uL (130-400); RED BLOOD CELL COUNT 2.95 mill/uL (4.2-5.4); RED CELL DISTRIBUTION WIDTH 15.6 % (11.6-14.6)
[2021-02-14 06:20] LABS: PHOSPHORUS 2.6 mg/dL (2.5-4.9)
[2021-02-14] MEDS: NICARDIPINE 100 MG in SODIUM CHLORIDE 0.9% 100 ML IV PRN ×2 (07:21→16:03)
[2021-02-14] MEDS ORDERED: FUROSEMIDE 20MG/2ML VIAL IVP SCH (09:00)
[2021-02-14] MEDS ORDERED: CLOPIDOGREL 75MG TABLET NG SCH (09:00)
[2021-02-14] MEDS: LEVETIRACETAM 500MG PREMIX 100 ML IV SCH ×2 (09:55→20:33)
[2021-02-14] MEDS: AMLODIPINE 5MG TABLET PO SCH ×2 (09:56→20:32)
[2021-02-14] MEDS: PANTOPRAZOLE SODIUM 40 MG/VIAL IV SCH ×2 (09:56→20:33)
[2021-02-14] MEDS: LOSARTAN POTASSIUM 50 MG TABLET PO SCH ×2 (09:56→20:32)
[2021-02-14] MEDS: INSULIN GLARGINE UD 100 UNITS/ML SYR SUBCUT SCH (09:57)
[2021-02-14] MEDS: VANCOMYCIN HCL 1000 MG/20 ML ORAL PO SCH ×4 (09:57→20:33)
[2021-02-14] MEDS: IPRATROPIUM/ALBUTEROL 0.5-3(2.5)MG/3ML NEB HHN SCH ×3 (11:43→20:44)
[2021-02-14] MEDS: DIGOXIN 125MCG TABLET PO SCH (17:45)
[2021-02-14] MEDS: ATORVASTATIN CALCIUM 40MG TABLET NG SCH (20:32)
[2021-02-15] VITALS (89 sets, daily range): BP systolic -3–160; BP diastolic -16–90
[2021-02-15] MEDS: ACETYLCYSTEINE 100MG/ML 10% VIAL 4ML INH SCH ×4 (00:02→23:56)
[2021-02-15] MEDS: IPRATROPIUM/ALBUTEROL 0.5-3(2.5)MG/3ML NEB HHN SCH ×7 (00:03→23:56)
[2021-02-15] MEDS: BLOOD SUGAR DIAGNOSTIC STRIP TEST SCH ×5 (00:14→23:38)
[2021-02-15] MEDS: INSULIN LISPRO 100 UNITS/ML SUBCUT SCH ×5 (00:16→23:38)
[2021-02-15] MEDS: NICARDIPINE 100 MG in SODIUM CHLORIDE 0.9% 100 ML IV PRN ×2 (00:17→06:25)
[2021-02-15] MEDS: RACEPINEPHRINE 2.25% 0.5ML NEB VIAL HHN PRN ×2 (00:47→04:36)
[2021-02-15 05:44] LABS: CHLORIDE 120 mEq/L (98-107)
[2021-02-15] MEDS: HYDRALAZINE HCL 25MG TABLET PO SCH (05:51)
[2021-02-15 05:58] LABS: HEMATOCRIT. 29.5 % (36.0-48.0); HEMOGLOBIN. 9.6 g/dL (12.0-16.0); MEAN CORPUSCULAR HEMOGLOBIN 27.9 pg (28.0-32.0); MEAN CORPUSCULAR VOLUME 85.6 fL (81.0-99.0); MEAN PLATELET VOLUME 9.2 fl (7.4-10.4); PLATELET 241 x1000/uL (130-400); RED BLOOD CELL COUNT 3.45 mill/uL (4.2-5.4)
[2021-02-15] MEDS: LEVETIRACETAM 500MG PREMIX 100 ML IV SCH ×2 (08:46→20:11)
[2021-02-15] MEDS: VANCOMYCIN HCL 1000 MG/20 ML ORAL PO SCH ×4 (08:46→20:12)
[2021-02-15] MEDS: AMLODIPINE 5MG TABLET PO SCH ×2 (08:46→20:12)
[2021-02-15] MEDS: PANTOPRAZOLE SODIUM 40 MG/VIAL IV SCH ×2 (08:46→20:11)
[2021-02-15] MEDS: LOSARTAN POTASSIUM 50 MG TABLET PO SCH ×2 (08:46→20:11)
[2021-02-15 10:39] LABS: BG BASE EXCESS -1.7 mmol/L (-2.0-2.0); BG CARBOXYHEMOGLOBIN 0.3 % (0.5-1.5); BG FRACTION INSPIRED OXYGEN 80; BG METHEMOGLOBIN 0.5 % (0.0-1.5); BG OXYHEMOGLOBIN 98.2 % (94.0-97.0); BG PCO2 38.9 mmHg (35.0-45.0); BG PO2 239.3 mmHg (75.0-100.0); BG SAMPLE SITE RIGHT RADIAL; BG VENT MODE MASK - HHN
[2021-02-15] MEDS ORDERED: DEXT 5% WATER + KCL 20MEQ/L 1,000 ML IV SCH (11:00)
[2021-02-15] MEDS: HYDRALAZINE HCL 50MG TABLET PO SCH ×2 (11:27→22:20)
[2021-02-15] MEDS: INSULIN GLARGINE UD 100 UNITS/ML SYR SUBCUT SCH (11:28)
[2021-02-15] MEDS ORDERED: HYDRALAZINE HCL 50MG TABLET PO SCH (14:00)
[2021-02-15 15:52] LABS: PLATELET ESTIMATE NORMAL
[2021-02-15 17:25] LABS: PLATELET ESTIMATE NORMAL
[2021-02-15] MEDS: DIGOXIN 125MCG TABLET PO SCH (18:01)
[2021-02-15] MEDS: ATORVASTATIN CALCIUM 40MG TABLET NG SCH (20:11)
[2021-02-16] VITALS (59 sets, daily range): BP systolic 120–172; BP diastolic 50–107
[2021-02-16] MEDS: CLONIDINE 0.1MG TABLET PO PRN (00:29)
[2021-02-16] MEDS ORDERED: MORPHINE SULFATE 2 MG/ML CPJ (NOT FOR IM USE) IV PRN (03:45)
[2021-02-16] MEDS ORDERED: NALOXONE HCL 0.4MG/ML VIAL IV PRN (04:00)
[2021-02-16] MEDS: IPRATROPIUM/ALBUTEROL 0.5-3(2.5)MG/3ML NEB HHN SCH ×4 (04:26→16:24)
[2021-02-16] MEDS: RACEPINEPHRINE 2.25% 0.5ML NEB VIAL HHN PRN ×2 (04:56→20:28)
[2021-02-16] MEDS: BLOOD SUGAR DIAGNOSTIC STRIP TEST SCH ×3 (06:02→17:07)
[2021-02-16] MEDS: HYDRALAZINE HCL 50MG TABLET PO SCH ×3 (06:02→22:58)
[2021-02-16] MEDS: INSULIN LISPRO 100 UNITS/ML SUBCUT SCH ×3 (06:03→17:06)
[2021-02-16 06:15] LABS: HEMATOCRIT. 30.4 % (36.0-48.0); HEMOGLOBIN. 9.7 g/dL (12.0-16.0); MEAN CORPUSCULAR HEMOGLOBIN 27.7 pg (28.0-32.0); MEAN CORPUSCULAR VOLUME 86.9 fL (81.0-99.0); MEAN PLATELET VOLUME 9.3 fl (7.4-10.4); PLATELET 273 x1000/uL (130-400); RED CELL DISTRIBUTION WIDTH 16.3 % (11.6-14.6)
[2021-02-16] MEDS ORDERED: HYDRALAZINE 20MG/ML VIAL IV PRN (06:45)
[2021-02-16] MEDS: ACETYLCYSTEINE 100MG/ML 10% VIAL 4ML INH SCH ×2 (08:05→16:24)
[2021-02-16] MEDS: AMLODIPINE 5MG TABLET PO SCH ×2 (10:12→21:06)
[2021-02-16] MEDS: LOSARTAN POTASSIUM 50 MG TABLET PO SCH ×2 (10:12→21:06)
[2021-02-16] MEDS: PANTOPRAZOLE SODIUM 40 MG/VIAL IV SCH ×2 (10:12→21:07)
[2021-02-16] MEDS: VANCOMYCIN HCL 1000 MG/20 ML ORAL PO SCH ×4 (10:13→21:25)
[2021-02-16] MEDS: INSULIN GLARGINE UD 100 UNITS/ML SYR SUBCUT SCH (10:13)
[2021-02-16] MEDS ORDERED: SODIUM POLYSTYRENE SULFONATE 15 G/60 ML BOT PO SCH (11:00)
[2021-02-16 11:59] LABS: CLARITY URINE CLEAR (CLEAR); COLOR URINE YELLOW (YELLOW); KETONES URINE NEGATIVE (NEGATIVE); LEUKOCYTE ESTERASE URINE NEGATIVE (NEGATIVE); NITRITE URINE NEGATIVE (NEGATIVE); OCCULT BLOOD URINE TRACE (NEGATIVE); PROTEIN URINE 1+ (NEGATIVE); SPECIFIC GRAVITY URINE 1.016 (1.005-1.030); UROBILINOGEN URINE 0.2 E.U./dL (0.2-1.0)
[2021-02-16] MEDS: LEVETIRACETAM 500MG PREMIX 100 ML IV SCH ×2 (12:16→21:25)
[2021-02-16 14:22] LABS: PLATELET ESTIMATE NORMAL
[2021-02-16] MEDS: FLUCONAZOLE 200 MG/100ML BAG 100 ML IV SCH (16:20)
[2021-02-16] MEDS: DIGOXIN 125MCG TABLET PO SCH (17:07)
[2021-02-16] MEDS: IPRATROPIUM BROMIDE (0.02%) 0.5MG/2.5ML NEB HHN SCH (20:28)
[2021-02-16] MEDS ORDERED: IPRATROPIUM BROMIDE (0.02%) 0.5MG/2.5ML NEB ONE (20:36)
[2021-02-16 20:41] LABS: BG BASE EXCESS -0.4 mmol/L (-2.0-2.0); BG CARBOXYHEMOGLOBIN 0.3 % (0.5-1.5); BG DEOXYHEMOGLOBIN 15.6 % (0.0-5.0); BG FRACTION INSPIRED OXYGEN 36; BG HCO3 ACT 24.7 mmol/L (22.0-26.0); BG METHEMOGLOBIN 0.2 % (0.0-1.5); BG OXYGEN SATURATION 84.3 % (92.0-98.5); BG OXYHEMOGLOBIN 83.9 % (94.0-97.0); BG PCO2 42.4 mmHg (35.0-45.0); BG PH 7.383 (7.350-7.450); BG PO2 50.3 mmHg (75.0-100.0); BG SAMPLE SITE RIGHT RADIAL; BG TOTAL HEMOGLOBIN 10.1 g/dL (12.0-18.0)
[2021-02-16] MEDS ORDERED: FUROSEMIDE 40MG/4ML VIAL IVP NR (20:45)
[2021-02-16] MEDS: MORPHINE SULFATE 2 MG/ML CPJ (NOT FOR IM USE) IV NR ×2 (20:45→22:03)
[2021-02-16] MEDS ORDERED: METHYLPREDNISOLONE SOD SUCC 40 MG/ML VIAL IV NR (20:45)
[2021-02-16] MEDS: ATORVASTATIN CALCIUM 40MG TABLET NG SCH (21:06)
[2021-02-17] VITALS (12 sets, daily range): BP systolic 116–155; BP diastolic 43–79
[2021-02-17] MEDS: BLOOD SUGAR DIAGNOSTIC STRIP TEST SCH ×5 (00:12→23:30)
[2021-02-17] MEDS: INSULIN LISPRO 100 UNITS/ML SUBCUT SCH ×4 (00:21→18:15)
[2021-02-17] MEDS: IPRATROPIUM BROMIDE (0.02%) 0.5MG/2.5ML NEB HHN SCH ×6 (00:45→21:17)
[2021-02-17] MEDS: ACETYLCYSTEINE 100MG/ML 10% VIAL 4ML INH SCH ×3 (00:45→16:29)
[2021-02-17] MEDS: HYDRALAZINE HCL 50MG TABLET PO SCH ×3 (06:54→22:00)
[2021-02-17 06:55] LABS: CHLORIDE 114 mEq/L (98-107)
[2021-02-17 08:20] LABS: BG CARBOXYHEMOGLOBIN 0.2 % (0.5-1.5); BG DEOXYHEMOGLOBIN 0.8 % (0.0-5.0); BG HCO3 ACT 26.1 mmol/L (22.0-26.0); BG METHEMOGLOBIN 0.2 % (0.0-1.5); BG OXYGEN SATURATION 99.2 % (92.0-98.5); BG OXYHEMOGLOBIN 98.8 % (94.0-97.0); BG PCO2 49.4 mmHg (35.0-45.0); BG PH 7.341 (7.350-7.450); BG PO2 298.3 mmHg (75.0-100.0); BG SAMPLE SITE RIGHT RADIAL; BG TOTAL HEMOGLOBIN 9.7 g/dL (12.0-18.0); BG VENT MODE MASK - BIPAP
[2021-02-17] MEDS ORDERED: MORPHINE SULFATE 2 MG/ML CPJ (NOT FOR IM USE) IV PRN (09:00)
[2021-02-17] MEDS ORDERED: MORPHINE SULFATE 250 MG in DEXT 5% WATER 225 ML IV SCH (09:30)
[2021-02-17] MEDS: LEVETIRACETAM 500MG PREMIX 100 ML IV SCH ×2 (09:37→21:37)
[2021-02-17] MEDS: PANTOPRAZOLE SODIUM 40 MG/VIAL IV SCH ×2 (09:37→21:37)
[2021-02-17] MEDS: AMLODIPINE 5MG TABLET PO SCH ×2 (09:38→21:38)
[2021-02-17] MEDS: LOSARTAN POTASSIUM 50 MG TABLET PO SCH ×2 (09:38→21:37)
[2021-02-17] MEDS: INSULIN GLARGINE UD 100 UNITS/ML SYR SUBCUT SCH (09:58)
[2021-02-17] MEDS: VANCOMYCIN HCL 1000 MG/20 ML ORAL PO SCH ×4 (09:59→22:28)
[2021-02-17] MEDS ORDERED: SODIUM POLYSTYRENE SULFONATE 15 G/60 ML BOT PO SCH (11:00)
[2021-02-17] MEDS: FLUCONAZOLE 200 MG/100ML BAG 100 ML IV SCH (15:07)
[2021-02-17] MEDS: DIGOXIN 125MCG TABLET PO SCH (18:11)
[2021-02-17] MEDS: ATORVASTATIN CALCIUM 40MG TABLET NG SCH (21:38)
[2021-02-18] VITALS (12 sets, daily range): BP systolic 102–122; BP diastolic 36–49
[2021-02-18] MEDS: IPRATROPIUM BROMIDE (0.02%) 0.5MG/2.5ML NEB HHN SCH ×6 (01:45→20:53)
[2021-02-18] MEDS: ACETYLCYSTEINE 100MG/ML 10% VIAL 4ML INH SCH ×3 (01:45→17:20)
[2021-02-18] MEDS: HYDRALAZINE HCL 50MG TABLET PO SCH ×3 (05:35→21:12)
[2021-02-18] MEDS: PANTOPRAZOLE SODIUM 40 MG/VIAL IV SCH ×2 (08:53→20:04)
[2021-02-18] MEDS: LEVETIRACETAM 500MG PREMIX 100 ML IV SCH ×2 (08:53→20:06)
[2021-02-18] MEDS: VANCOMYCIN HCL 1000 MG/20 ML ORAL PO SCH ×4 (08:55→20:04)
[2021-02-18] MEDS: AMLODIPINE 5MG TABLET PO SCH ×2 (08:55→20:06)
[2021-02-18] MEDS: FLUCONAZOLE 200 MG/100ML BAG 100 ML IV SCH (15:31)
[2021-02-18] MEDS: DIGOXIN 125MCG TABLET PO SCH (17:06)
[2021-02-18] MEDS: ATORVASTATIN CALCIUM 40MG TABLET NG SCH (20:05)
[2021-02-19 00:13] VITALS: BP 112/40
[2021-02-19] MEDS: IPRATROPIUM BROMIDE (0.02%) 0.5MG/2.5ML NEB HHN SCH ×3 (00:35→07:43)
[2021-02-19] MEDS: ACETYLCYSTEINE 100MG/ML 10% VIAL 4ML INH SCH (00:36)
[2021-02-19 02:00] VITALS: BP 113/39
[2021-02-19 03:30] VITALS: BP 106/34
[2021-02-19] MEDS: HYDRALAZINE HCL 50MG TABLET PO SCH (05:07)
[2021-02-19 05:30] VITALS: BP 98/36
[2021-02-19 08:00] VITALS: BP 96/32
== END 2021-02-19 09:10 | DRG 25 ==
LOC: ER 17:13 → 8WST 20:16 → ENRESERV 21:24 → MICUNO 02-07 12:07 → 5EST 02-16 11:50
PROVIDERS: ADMIT Internal Medicine Geriatric Medicine; ATTEND Internal Medicine Geriatric Medicine
PROC: BD11ZZZ Fluoroscopy of Esophagus (ICD-10-PCS; 2021-02-06)
PROC: 4A10X4Z Monitoring of Central Nervous Electrical Activity, External Approach (ICD-10-PCS; 2021-02-07)
PROC: 00BC0ZZ Excision of Cerebellum, Open Approach (ICD-10-PCS; principal; 2021-02-08)
PROC: 009600Z Drainage of Cerebral Ventricle with Drainage Device, Open Approach (ICD-10-PCS; 2021-02-08)
PROC: 5A1955Z Respiratory Ventilation, Greater than 96 Consecutive Hours (ICD-10-PCS; 2021-02-08)
PROC: 00U207Z Supplement Dura Mater with Autologous Tissue Substitute, Open Approach (ICD-10-PCS; 2021-02-08)
PROC: 0NR00JZ Replacement of Skull with Synthetic Substitute, Open Approach (ICD-10-PCS; 2021-02-08)
PROC: 0BH17EZ Insertion of Endotracheal Airway into Trachea, Via Natural or Artificial Opening (ICD-10-PCS; 2021-02-08)
PROC: 02HV33Z Insertion of Infusion Device into Superior Vena Cava, Percutaneous Approach (ICD-10-PCS; 2021-02-09)
PROC: B548ZZA Ultrasonography of Superior Vena Cava, Guidance (ICD-10-PCS; 2021-02-09)
PROC: 30233N1 Transfusion of Nonautologous Red Blood Cells into Peripheral Vein, Percutaneous Approach (ICD-10-PCS; 2021-02-14)
PROC: 5A09457 Assistance with Respiratory Ventilation, 24-96 Consecutive Hours, Continuous Positive Airway Pressure (ICD-10-PCS; 2021-02-16)
DX: C79.31 Secondary malignant neoplasm of brain (principal); I61.5 Nontraumatic intracerebral hemorrhage, intraventricular; J96.00 Acute respiratory failure, unspecified whether with hypoxia or hypercapnia; J18.9 Pneumonia, unspecified organism; I63.9 Cerebral infarction, unspecified; E46 Unspecified protein-calorie malnutrition; J44.0 Chronic obstructive pulmonary disease with (acute) lower respiratory infection; E87.2 Acidosis; G91.9 Hydrocephalus, unspecified; G93.40 Encephalopathy, unspecified; E87.1 Hypo-osmolality and hyponatremia; N17.9 Acute kidney failure, unspecified; D64.9 Anemia, unspecified; E11.51 Type 2 diabetes mellitus with diabetic peripheral angiopathy without gangrene; E78.5 Hyperlipidemia, unspecified; I11.0 Hypertensive heart disease with heart failure; I25.10 Atherosclerotic heart disease of native coronary artery without angina pectoris; I27.20 Pulmonary hypertension, unspecified; I50.9 Heart failure, unspecified; K21.9 Gastro-esophageal reflux disease without esophagitis; K22.2 Esophageal obstruction; M19.90 Unspecified osteoarthritis, unspecified site; S40.022A Contusion of left upper arm, initial encounter; N99.3 Prolapse of vaginal vault after hysterectomy; D50.9 Iron deficiency anemia, unspecified; R13.10 Dysphagia, unspecified; W18.39XA Other fall on same level, initial encounter; R59.0 Localized enlarged lymph nodes; I46.9 Cardiac arrest, cause unspecified; J20.9 Acute bronchitis, unspecified; Z20.822 Contact with and (suspected) exposure to COVID-19; T38.0X5A Adverse effect of glucocorticoids and synthetic analogues, initial encounter; Z51.5 Encounter for palliative care; Z66 Do not resuscitate; Z85.01 Personal history of malignant neoplasm of esophagus; Z95.1 Presence of aortocoronary bypass graft; Z93.4 Other artificial openings of gastrointestinal tract status; Z92.3 Personal history of irradiation; Z92.21 Personal history of antineoplastic chemotherapy; Z85.819 Personal history of malignant neoplasm of unspecified site of lip, oral cavity, and pharynx; Z88.5 Allergy status to narcotic agent; Z79.899 Other long term (current) drug therapy; Z68.28 Body mass index [BMI] 28.0-28.9, adult; Y93.89 Activity, other specified; Y92.89 Other specified places as the place of occurrence of the external cause; Y99.8 Other external cause status; Z79.02 Long term (current) use of antithrombotics/antiplatelets; Z85.118 Personal history of other malignant neoplasm of bronchus and lung; Z79.4 Long term (current) use of insulin; Z86.73 Personal history of transient ischemic attack (TIA), and cerebral infarction without residual deficits; G90.9 Disorder of the autonomic nervous system, unspecified; Z87.891 Personal history of nicotine dependence
CPT/HCPCS: 36415; 36600; 70553; 71045; 71260; 74177; 74220; 76770; 76937; 80048; 80053; 80162; 81003; 82375; 82378; 82805; 82962; 83036; 83735; 84100; 84443; 84478; 84484; 85025; 86850; 86900; 86920; 87070; 87106; 87426; 87493; 88305; 88331; 93005; 93306; 94002; 94003; 94640; 97110; 97162; 97164; 99285; A6261; A9577; C1713; C1725; C9113; G0378; J0360; J0690; J1100; J1170; J1450; J1580; J1815; J1940; J1953; J2060; J2250; J2270; J2405; J2543; J2704; J2710; J2920; J3010; J3370; J3480; J3490; J7040; J7050; J7060; J7608; P9016; Q9963; Q9967